=== PATIENT | male | born 1955 | race Caucasian/White ===

== ENCOUNTER → 2017-05-12 | Day surgery (SDC) | payer BC ==
--- NOTE | 2017-05-11 09:07 | MH ---
cc: KONG THAKUR DATE OF ADMISSION 05/12/2017 HISTORY The patient is a 62 year-old male who has nasal obstruction and chronic sinusitis for open septal reconstruction, bilateral inferior turbinectomy, bilateral maxillary antrostomy. PAST MEDICAL HISTORY Unremarkable PAST SURGICAL HISTORY Unremarkable REVIEW OF SYSTEMS, FAMILY HISTORY, SOCIAL HISTORY Unremarkable PHYSICAL EXAMINATION A well-appearing patient in no acute distress noted. HEENT: Exam reveals septal deviation, turbinate hypertrophy, mucopurulent secretion. Oral cavity clear. NECK: Soft, supple, no masses. LUNGS: Clear. HEART: Regular rate and rhythm. ABDOMEN: Soft and nontender. EXTREMITIES: Without cyanosis, clubbing or edema. NEUROLOGIC: Alert, oriented, nonfocal neurologic exam. IMPRESSION A patient with chronic sinusitis and nasal obstruction for nasal sinus surgery. Instructed method of surgery and possible complication include anesthetic complications, cardiac difficulty, pulmonary difficulty, stroke, . Surgical complications bleeding, infection, decreased sense of smell, septal perforation. The patient appeared to agree, accept and understand the above-mentioned risks and benefits. In addition no guarantees or warranties regarding outcome were given. We will therefore proceed with surgery. MD FRANKO Rodriguez/REESE /8:45 AM /9:04 AM
[~2017-05-12] VITALS: Ht 177.8 cm; Wt 86.1 kg
[~2017-05-12] MED LIST: *morphine SULFATE 8 MG/ML PERIprocedure ONLY ONE; ACETAMINOPHEN 1000 MG/100 ML VIAL IV ONE; ACETAMINOPHEN/HYDROcodone 325 MG/7.5 MG TAB PO PRN; CHLORHEXIDINE GLUCONATE 2 % 1 PACK (2 CLOTHS) TOPICAL PRN; DO NOT ADM ANY ANTICOAGULANT DRUGS PRN; EPINEPHrine HCL (1:1000) 30 MG/30 ML VIAL ONE; INSULIN HUMAN REGULAR 1,000 UNITS/10 ML VIAL SQ PRN; LACTATED RINGER'S 1000 ML IV PRN; LIDOCAINE 1%/EPINEPHrine 1:100,000 SOLN 20 ML VIAL ONE; METOPROLOL TARTRATE 25 MG TAB PO PRN; MORPHINE SULFATE 4 MG/ML INJ IV PUSH PRN; ONDANSETRON HCL 4 MG/2 ML VIAL IV PUSH ONE; ONDANSETRON HCL 4 MG/2 ML VIAL IV PUSH PRN; POVIDONE IODINE 5% (ANTISEPSIS KIT) 4 APPLICATIONS EACH NARE PRN; PROPOFOL 200 MG/20 ML AMP IV ONE; SODIUM CHLORID 0.9% 500 ML IV PRN
[2017-05-12 06:21] LABS: AUTOMATED NEUTROPHIL # 2.7 TH/MM3 (1.8-7.7); BASOPHIL % 0.6 % (0.0-2.0); EOSINOPHIL # 0.2 TH/MM3 (0-0.4); EOSINOPHIL % 3.6 % (0.0-4.0); HEMATOCRIT 41.1 % (39.0-51.0); HEMO FLAGS DIFF FINAL; LYMPH % 38.9 % (9.0-44.0); LYMPHOCYTE # 2.4 TH/MM3 (1.0-4.8); MEAN CORPUSCULAR HEMOGLOBIN 30.1 PG (27.0-34.0); MEAN CORPUSCULAR HGB CONC 32.7 % (32.0-36.0); MONO % 12.6 % (0.0-8.0); NEUT % 44.3 % (16.0-70.0); PLATELET COUNT 193 TH/MM3 (150-450); RED BLOOD COUNT 4.46 MIL/MM3 (4.50-5.90); RED CELL DISTRIBUTION WIDTH 13.4 % (11.6-17.2); WHITE BLOOD COUNT 6.1 TH/MM3 (4.0-11.0)
--- NOTE | 2017-05-12 08:16 | EKG ---
Date Performed: 05/12/2017 Time Performed: 06:12:28 PTAGE: 62 years EKG: SINUS BRADYCARDIA BORDERLINE LEFT AXIS DEVIATION BORDERLINE ECG PREVIOUS TRACING : 11/21/2001 12.06 DOCTOR: Kush Frankel Interpretating Date/Time 05/12/2017 08:12:15
[2017-05-12 09:45] VITALS: BP 143/88; PULSE 60; RESP 18; TEMP 97.2; O2SAT 96
--- NOTE | 2017-05-13 23:10 | MP ---
cc: KONG THAKUR DATE OF SURGERY 05/12/17 PREOPERATIVE DIAGNOSIS Nasal obstruction, chronic sinusitis. PROCEDURE Open septal reconstruction, bilateral inferior turbinectomy, submucous resection, bilateral endoscopic maxillary antrostomy ESTIMATED BLOOD LOSS 100 mL. COMPLICATIONS None SURGEON Dr. Manoj Thakur. PROCEDURE IN DETAIL Prepped and draped usual fashion. 1% Xylocaine 1:100,000 epinephrine injected anterior nasal septum, inferior turbinate middle meatus bilaterally. 1:1000 adrenaline soaked pledgets were placed. A mucoperichondrial incision then made on the right side of the septum. Mucoperichondrial flap elevated and significant amount of bone and cartilage removed to improve nasal airway. Mucoperichondrial flap was reapproximated. Once this was achieved, the patient then had the cartilage and bone removed to improve the nasal airway, reduce the nasal fracture and the mucoperichondrial flap was reapproximated. Multiple insertions of the Coblator probe were performed on the left and right inferior turbinate submucosally decreasing the size of the turbinate and improving the nasal airway. The natural antrostomy on the left and the right were endoscopically identified and enlarged with a curved suction. Minor bleeding noted. Bilateral Nasapore dressing placed. The patient tolerated procedure well. MD FRANKO Rodriguez/ /8:01 AM /11:06 PM
== END | disposition home or self-care (01) ==
LOC: HSDC 05:29
PROVIDERS: ATTEND Specialist
DX: J34.89 Other specified disorders of nose and nasal sinuses (principal); J32.4 Chronic pansinusitis; R00.1 Bradycardia, unspecified
CPT/HCPCS: 00160; 30140; 30520; 31267; 85025; 93005; J0131; J0171; J2270; J2405; J3010; J7120